=== PATIENT | male | born 1990 | race African-American/Black ===

== ENCOUNTER 2019-06-03 22:33 | Emergency (ER) | payer MEDICAID, OTHER ==
[2019-06-03 23:47] VITALS: BP 170/99
--- NOTE | 2019-06-03 23:50 | ER Document Report ---
HPI - HPI Time Seen by Provider: 06/03/19 23:45 Context: Patient is a 29-year-old male who presents emergency department with a chief complaint of nasal congestion. Patient reports he does have a sick family member at home who is a child with similar symptoms such as nasal congestion, runny nose and cough. Patient denies fever. Patient reports this is been present for about 3 days. Patient denies nausea or vomiting. Patient reports today he did have 2 episodes of diarrhea. Patient also reports having a hoarse voice. Patient denies sore throat or ear pain. Patient denies any sinus pressure. Patient reports he did start to take Flonase today. Past Medical History - General Information source: Patient - Social History Smoking Status: Unknown if Ever Smoked Lives with: Family Family History: None - Medical History Medical History: Negative - Past Medical History Cardiac Medical History: Reports: None Pulmonary Medical History: Reports: None EENT Medical History: Reports: None Neurological Medical History: Reports: None Endocrine Medical History: Reports: None Renal/ Medical History: Reports: None Malignancy Medical History: Reports None GI Medical History: Reports: None Musculoskeletal Medical History: Reports None Skin Medical History: Reports None Psychiatric Medical History: Reports: None Traumatic Medical History: Reports: None Infectious Medical History: Reports: None Surgical Hx: Negative Vertical Provider Document - CONSTITUTIONAL Agree With Documented VS: Yes Exam Limitations: No Limitations General Appearance: No Apparent Distress - HEENT HEENT: Atraumatic, Normal ENT Exam, Normocephalic, PERRLA Notes: Patient does not have any sinus tenderness with palpation. There is no rhinorrhea. Bilateral turbinates erythematous. - NECK Neck: Normal Inspection Notes: Patient does not have any cervical lymphadenopathy. - RESPIRATORY Respiratory: Breath Sounds Normal, No Respiratory Distress - CARDIOVASCULAR Cardiovascular: Regular Rate, Regular Rhythm - GI/ABDOMEN Gastrointestinal: Abdomen Soft, Abdomen Non-Tender - He has needed a Bactrim, Normal Bowel Sounds - MUSCULOSKELETAL/EXTREMETIES Musculoskeletal/Extremeties: FROM, Non-Tender - NEURO Level of Consciousness: Awake, Alert, Appropriate - DERM Integumentary: Warm, Dry, No Rash Course - Re-evaluation Re-evalutation: 06/03/19 23:48 Patient's repeat blood pressure was 170/99. Patient is asymptomatic, denies headache, chest pain or shortness of breath. Patient reports he does not have a history of high blood pressure. I did reiterate the importance of following up with his primary care physician early next week or rechecking his blood pressure at a pharmacy. I did inform him that he is not want to live with a high blood pressure as this can cause a chronic organ damage as well as stroke and other medical problems. Patient verbalized understanding. Patient is nontoxic- appearing in no acute distress. - Vital Signs Vital signs: Temp Pulse Resp BP Pulse Ox 98.6 F 75 184/102 H 98 06/03/19 23:08 06/03/19 23:08 06/03/19 23:08 06/03/19 23:08 Discharge - Discharge Clinical Impression: Nasal congestion Condition: Stable Disposition: HOME, SELF-CARE Additional Instructions: *Today you are seen in the emergency department for nasal congestion. Your physical exam was reassuring and at this time I do not believe you require any imaging such as a chest x-ray or lab work testing. I would continue using the Flonase daily. I would use an [id number] either Neti pot or saline flush to the nose and sinuses which can help with your congestion. It seems like you most likely caught this nasal congestion from your nephew as he did also have similar symptoms. Please take Tylenol and ibuprofen as needed for pain. *Was also found that your blood pressure was elevated here in the emergency department. You have reported that you do not have a history of high blood pressure. I would follow-up with your primary care physician early next week to have this rechecked. You do not want to have high blood pressure chronically as this could lead to organ damage, stroke and other debilitating medical problems. Referrals: KAREN ALMANZA MD [Primary Care Provider] - Follow up as needed
== END 2019-06-03 23:54 | disposition home or self-care (01) ==
LOC: ER 22:33
DX: R09.81 Nasal congestion (principal); R49.0 Dysphonia; R19.7 Diarrhea, unspecified
CPT/HCPCS: 99283